=== PATIENT | male | born 1995 | race Asian ===

== ENCOUNTER 2020-11-06 18:48 | Emergency (ER) | payer MEDICAID ==
[2020-11-06] MEDS ORDERED: Ibuprofen 600 MG Tab PO ONE (19:16)
--- NOTE | 2020-11-06 19:17 | EDM.PDOC ---
ED HPI GENERAL MEDICAL PROBLEM - General Chief Complaint: Upper Extremity Injury/Pain Stated Complaint: SLIPPED ON ROCK FELL ON LEFT ARM. HAND AREA PUFFY Time Seen by Provider: 11/06/20 19:05 Source of Information: Reports: Patient History Limitations: Reports: No Limitations - History of Present Illness INITIAL COMMENTS - FREE TEXT/NARRATIVE: Patient comes emergency department today for from home with complaints of injury to his left hand. Just prior to arrival patient was out fishing on the rocks as he was climbing on them he slipped and fell landing with his hand outstretched and injured his left hand. He complains of pain in the left fourth metacarpal carpal region. He denies any paresthesias to his hand. He did other injury other than to the left metacarpal on the fourth side. He has not take anything for pain prior to arrival. He denies any other injury other than the injury to his hand. - Related Data Allergies Allergy/AdvReac Type Severity Reaction Status Date / Time No Known Allergies Allergy Verified 11/06/20 19:02 Home Meds: Home Meds . [No Known Home Meds] 11/06/20 [History] Past Medical History - Past Health History Medical/Surgical History: Denies Medical/Surgical History Social & Family History - Family History Family Medical History: No Pertinent Family History - Caffeine Use Caffeine Use: Reports: None - Recreational Drug Use Recreational Drug Use: No Review of Systems - Review of Systems Review Of Systems: Comprehensive ROS is negative, except as noted in HPI. ED EXAM, GENERAL - Physical Exam Exam: See Below Exam Limited By: No Limitations General Appearance: Alert, WD/WN, No Apparent Distress Respiratory/Chest: No Respiratory Distress Cardiovascular: Normal Peripheral Pulses Peripheral Pulses: 2+: Radial (L), Radial (R) Extremities: Normal Capillary Refill, Other (CMS is intact appropriately throughout the entire to the left hand.). No: Normal Inspection (Examination of the left hand the patient has swelling and tenderness along the line of the left fourth metatarsal. There is no overt bony deformity. He is able to flex and extend at the wrist appropriately. He can flex and extend all the DIP PIP and MCP joints of the left hand. ) Psychiatric: Anxious Skin Exam: Warm, Dry, Intact, Normal Color, No Rash Course - Vital Signs Last Recorded V/S: Last Vital Signs Temp 98.3 F 11/06/20 18:58 Pulse 77 05/23/21 18:58 Resp 16 11/06/20 18:58 BP 115/73 11/06/20 18:58 Pulse Ox 98 11/06/20 18:58 - Orders/Labs/Meds Meds: Medications Discontinued Medications Generic Name Dose Route Start Last Admin Trade Name Shelly PRN Reason Stop Dose Admin Bupivacaine HCl 30 ml 11/06/20 20:08 11/06/20 20:38 Bupivacaine 0.5% 30 Ml Sdv INJECT 11/06/20 20:09 30 ml ONETIME ONE Administration Bupivacaine HCl Confirm 11/06/20 20:26 Bupivacaine 0.5% 30 Ml Sdv Administered 11/06/20 20:27 Dose 30 ml .ROUTE .STK-MED ONE Ibuprofen 600 mg 11/06/20 19:16 11/06/20 19:37 Ibuprofen 600 Mg Tab PO 11/06/20 19:17 Not Given ONETIME ONE Lidocaine HCl 30 ml 11/06/20 20:08 11/06/20 20:38 Lidocaine 1% 30 Ml Sdv INJECT 11/06/20 20:09 30 ml ONETIME ONE Administration - Radiology Interpretation Free Text/Narrative:: Xray of the left hand per radiology. Acute minimally displace oblique fracture throught the mid shaft of the left 4th metacarpal. - Re-Assessments/Exams Free Text/Narrative Re-Assessment/Exam: 11/06/20 20:50 Ibuprofen for pain patient refused. Acute displaced of the left 4th metatarsal displaced. I reviewed the x-ray with the patient. This is somewhat displaced. After risk and benefits of a fracture block for attempted reduction of the displaced fracture consent was obtained from the patient. The site of the fracture of the left hand was cleansed with iodine and allowed to dry the appropriate time period. Then 1% lidocaine without epinephrine and 0.5% bupivacaine without epinephrine was mixed in a 50-50 fashion. At the site of the base of the metacarpal of the left hand with a 27-gauge needle down to the periosteum I injected 3 mils of the above solution along the fracture line. With good anesthesia. Patient tolerated procedure well no active bleeding. I then placed the left hand in a finger traps set up primarily of the fourth fifth and third fingers. Weight was applied and allowed to hang. Some manual manipulation was completed following this. The patient tolerated the procedure well. CMS was intact. Postreduction x-ray completed. No change post reductions. A dorsal and volar well-padded fiberglass splint was placed in a short arm cast to the left hand. Patient had good CMS following this. I would like him to follow-up with either Ortho or hand surgery as this most likely will need pinning. He is understanding of this his questions are answered. Discharge directions as below are explained the patient his questions were answered he was comfortable with this plan. Departure - Departure Time of Disposition: 21:17 Disposition: Home, Self-Care 01 Clinical Impression: Metacarpal bone fracture Qualifiers: Encounter type: initial encounter Metacarpal bone: fourth Fracture type: closed Metacarpal location: shaft Fracture alignment: displaced Laterality: left Qualif ied Code(s): S62.325A - Displaced fracture of shaft of fourth metacarpal bone, left hand, initial encounter for closed fracture - Discharge Information Instructions: RICE Therapy for Routine Care of Injuries, [id number], Cast or Splint Care, Adult, [id number], Metacarpal Fracture, [id number], Pain Medicine Instructions, [id number] Referrals: PCP,None [Primary Care Provider] - Forms: ED Department Discharge Additional Instructions: Keep the splint on at all times. Do not take it off or get it wet. Tylenol and or Ibuprofen as needed for pain. RICE therapy as per discharge instructions. Return to the ED if new or worsening symptoms. Follow up with Ortho/hand surgery at [facility] in one week. Call saturday to make a follow up appointment. Sepsis Event Note (ED) - Evaluation Sepsis Screening Result: No Definite Risk - Focused Exam Vital Signs: Vital Signs Temp Pulse Resp BP Pulse Ox 11/06/20 18:58 98.3 F 77 16 115/73 98
[2020-11-06] MEDS ORDERED: Lidocaine 1% 30 ML SDV INJECT ONE (20:08)
[2020-11-06] MEDS ORDERED: Bupivacaine 0.5% 30 ML SDV INJECT ONE (20:08)
[2020-11-06] MEDS ORDERED: Bupivacaine 0.5% 30 ML SDV ONE (20:26)
--- NOTE | 2020-11-06 20:29 | CR ---
PROCEDURE INFORMATION: Exam: XR Left Hand Exam date and time: 11/06/2020 7:43 PM Age: 24 years old Clinical indication: Other: Fall/pain; Additional info: Fall left 4th metacarpal injury TECHNIQUE: Imaging protocol: XR Left hand. Views: 3 or more views. Total images: 3 COMPARISON: No relevant prior studies available. FINDINGS: Bones/joints: There is an acute displaced oblique fracture throughout the mid shaft of the left 4th metacarpal. Minimally displaced. Soft tissues: Normal. IMPRESSION: Acute minimally displaced oblique fracture throughout the mid shaft of the left 4th metacarpal.
--- NOTE | 2020-11-06 21:04 | CR ---
PROCEDURE INFORMATION: Exam: XR Left Hand Exam date and time: 11/06/2020 8:55 PM Age: 24 years old Clinical indication: Other: Post reduction; Additional info: Post reduction. Ap lat only TECHNIQUE: Imaging protocol: XR Left hand. Views: 1 or 2 views. Total images: 2 COMPARISON: CR Hand Comp Min 3V Lt 11/06/2020 7:43 PM FINDINGS: Bones/joints: Relative similar appearance in oblique fracture through the mid shaft of the left 4th metacarpal. Persistent minimal displacement. Soft tissues: Normal. IMPRESSION: Similar appearance of oblique minimally displaced fracture left 4th metacarpal.
== END 2020-11-06 21:30 | disposition home or self-care (01) ==
LOC: DL.ED 18:48
DX: S62.325A Displaced fracture of shaft of fourth metacarpal bone, left hand, initial encounter for closed fracture (principal)
CPT/HCPCS: 26605; 73120-LT; 73130-LT; 99283-25; J3490